=== PATIENT | female | born 1975 | race Caucasian/White ===

== ENCOUNTER 2018-03-06 21:45 | Emergency (ER) | payer OTHER ==
[2018-03-07 00:08] LABS: ABSOLUTE EOSINOPHILS # (AUTO) 0.3 10^3/uL (0.0-0.6); ABSOLUTE LYMPHOCYTES (AUTO) 2.5 10^3/uL (0.5-4.7); ABSOLUTE MONOCYTES (AUTO) 0.9 10^3/uL (0.1-1.4); BASOPHILS % (AUTO) 0.2 % (0-2); EOSINOPHILS % (AUTO) 3.2 % (0-6); HEMOGLOBIN 12.9 g/dL (12.0-15.5); LYMPHOCYTES % (AUTO) 25.7 % (13-45); MEAN CORPUSCULAR HEMOGLOBIN 31.4 pg (27.0-33.4); MEAN CORPUSCULAR VOLUME 92 fl (80-97); MONOCYTES % (AUTO) 9.6 % (3-13); PLATELET COUNT 233 10^3/uL (150-450); RED BLOOD COUNT 4.11 10^6/uL (3.72-5.28); RED CELL DISTRIBUTION WIDTH 13.4 % (11.5-14.0); SEGMENTED NEUTROPHILS % (AUTO) 61.3 % (42-78); TOTAL CELLS COUNTED % (AUTO) 100 %; WHITE BLOOD COUNT 9.7 10^3/uL (4.0-10.5)
[2018-03-07 00:27] LABS: ALANINE AMINOTRANSFERASE 17 U/L (9-52); ALBUMIN 3.5 g/dL (3.5-5.0); ALKALINE PHOSPHATASE 68 U/L (38-126); ANION GAP 9 (5-19); ASPARTATE AMINO TRANSFERASE 12 U/L (14-36); BILIRUBIN,DIRECT 0.2 mg/dL (0.0-0.4); BILIRUBIN,TOTAL 0.5 mg/dL (0.2-1.3); BLOOD UREA NITROGEN 13 mg/dL (7-20); CALCIUM 9.1 mg/dL (8.4-10.2); CARBON DIOXIDE 25 mmol/L (22-30); CHLORIDE 107 mmol/L (98-107); GLUCOSE 89 mg/dL (75-110); POTASSIUM 4.3 mmol/L (3.6-5.0); SODIUM 141.2 mmol/L (137-145); TOTAL PROTEIN 5.9 g/dL (6.3-8.2)
[2018-03-07] MEDS ORDERED: LIDOCAINE 5% (700 MG) TRANSDERMAL ADH..PATCH TP ONE (00:44)
--- NOTE | 2018-03-07 00:49 | ER Document Report ---
ED General - General Chief Complaint: Stiff Neck Stated Complaint: STIFF NECK, FEVER, HEADACHE Time Seen by Provider: 03/06/18 23:44 Notes: Patient is a 43-year-old female without chronic medical problems who presents with 10 days of headache, neck stiffness, fatigue and body pain. The patient reports that the symptoms started approximately 10 days ago have overall been worsening since that time. She has been trying ibuprofen with minimal to no improvement in her pain. Nothing worsens her pain. She was seen in a emergency department yesterday for the same, no labs or imaging were obtained and she was diagnosed with a neck spasm and discharged home on muscle relaxants which she states have not improved her symptoms. She denies a history of similar symptoms in the past. She has not had a recorded fever at home. She is outside regularly. She also does note a small rash on the posterior aspect of her left lower extremity. She denies any confusion, weakness, numbness, but has had vomiting and nausea. She states overall this evening she feels somewhat better than yesterday. TRAVEL OUTSIDE OF THE [place] IN LAST 30 DAYS: No - Related Data Allergies/Adverse Reactions: No Known Allergies Allergy (Verified 01/09/12 23:13) Past Medical History - General Information source: Patient - Social History Smoking Status: Current Some Day Smoker Chew tobacco use (# tins/day): No Frequency of alcohol use: None Drug Abuse: None Lives with: Spouse/Significant other Family History: Reviewed & Not Pertinent Patient has suicidal ideation: No Patient has homicidal ideation: No Renal/ Medical History: Denies: Hx Peritoneal Dialysis Past Surgical History: Reports: Hx Breast Surgery, Hx Hysterectomy, Hx Tonsillectomy - Immunizations Hx Diphtheria, Pertussis, Tetanus Vaccination: Yes Review of Systems - Review of Systems Notes: Constitutional: Negative for fever. HENT: Negative for sore throat. Eyes: Negative for visual changes. Cardiovascular: Negative for chest pain. Respiratory: Negative for shortness of breath. Gastrointestinal: Negative for abdominal pain, positive for nausea and vomiting Genitourinary: Negative for dysuria. Musculoskeletal: Positive for neck pain Skin: Positive for rash. Neurological: Positive for headache 10 point ROS negative except as marked above and in HPI. Physical Exam - Vital signs Vitals: Temp Pulse Resp BP Pulse Ox 98.8 F 94 20 144/113 H 97 03/06/18 21:57 03/06/18 21:57 03/06/18 21:57 03/06/18 21:57 03/06/18 21:57 Interpretation: Hypertensive Notes: PHYSICAL EXAMINATION: GENERAL: Appears moderately uncomfortable but in no acute distress HEAD: Atraumatic, normocephalic. EYES: Pupils equal round and reactive to light, extraocular movements intact, sclera anicteric, conjunctiva are normal. ENT: nares patent, oropharynx clear without exudates. Moderately dry mucous membranes. NECK: Somewhat limited flexion and extension of the neck as well as range of motion although patient is able to complete with encouragement LUNGS: Breath sounds clear to auscultation bilaterally and equal. No wheezes rales or rhonchi. HEART: Regular rate and rhythm without murmurs ABDOMEN: Soft, nontender, normoactive bowel sounds. No guarding, no rebound. No masses appreciated. EXTREMITIES: Normal range of motion, no pitting or edema. No cyanosis. NEUROLOGICAL: Face symmetric. Tongue protrudes midline. Extraocular motions intact. Pupils are 2 mm and equally reactive. Normal speech, normal gait. 5 out of 5 strength in both the distal and proximal upper and lower extremities bilaterally. Sensation is grossly intact throughout. Finger to nose testing normal. Pronator drift normal. PSYCH: Normal mood, normal affect. SKIN: Warm, Dry, normal turgor, no rashes or lesions noted. Course - Re-evaluation Re-evalutation: 03/07/18 00:44 Patient presents with 10 days of headache, neck pain, general fatigue and 2 days of a spotted rash on her left lower extremity. Patient is overall well in appearance, no acute distress, vitals within normal limits. Labs unremarkable without evidence of a lactate elevation or leukocytosis. Patient has some mild neck stiffness but is overall able to complete a full range of motion. The duration of her symptoms excludes an acute bacterial meningitis particularly in the context of normal vitals and labs. A viral meningitis is high on the differential versus possible [place] spotted fever. I discussed at length with the patient and she and her at the bedside have declined a lumbar puncture. I think this is an acceptable decision particular given the low clinical suspicion for bacterial meningitis in a non-treatable nature of viral meningitis. We will however start on a course of doxycycline to cover for the possibility [place] spotted fever. At this time will discharge with return precautions and follow-up recommendations. Verbal discharge instructions given a the bedside and opportunity for questions given. Medication warnings reviewed. Patient is in agreement with this plan and has verbalized understanding of return precautions and the need for primary care follow-up in the next 24-72 hours. - Vital Signs Vital signs: Temp Pulse Resp BP Pulse Ox 98 F 87 18 118/76 100 03/07/18 01:10 03/07/18 01:10 03/07/18 01:10 03/07/18 01:10 03/07/18 01:10 - Laboratory Result Diagrams: 03/06/18 23:57 03/06/18 23:57 Laboratory results interpreted by me: 03/06/18 03/07/18 23:57 00:22 Lactic Acid 0.6 L AST 12 L Total Protein 5.9 L Discharge - Discharge Clinical Impression: Viral meningitis Headache Qualifiers: Headache type: unspecified Headache chronicity pattern: acute headache Intractability: not intractable Qualified Code(s): R51 - Headache Condition: Good Disposition: HOME, SELF-CARE Additional Instructions: The exact cause of your symptoms today is uncertain, but given what we have discussed today your being empirically treated with doxycycline for [place] Spotted fever. Alternative consideration is a viral meningitis for which there is no specific treatment. This is a tickborne illness that is very common in [place]. Please take all the antibiotics even if you are feeling better. Please return to the emergency department immediately if you develop worsening of your headache, confusion, persistent vomiting, or have any other symptoms that are worrisome to you. Please follow-up with your primary care doctor in the next 24-48 hours. For your pain: Take ibuprofen 600 mg and acetaminophen 1000 mg every 6 hours together as needed for pain. Prescriptions: Doxycycline Hyclate 100 mg PO BID #28 capsule Referrals: MARIO BOSWELL MD [Primary Care Provider] - Follow up as needed
[2018-03-07] MEDS ORDERED: DOXYCYCLINE HYCLATE 100 MG TABLET PO ONE (00:51)
[2018-03-07] MEDS ORDERED: IBUPROFEN 600 MG TABLET PO ONE (00:51)
[2018-03-07] MEDS ORDERED: ACETAMINOPHEN 325 MG TABLET PO ONE (00:51)
[2018-03-07 01:10] VITALS: BP 118/76
== END 2018-03-07 01:26 | disposition home or self-care (01) ==
LOC: ER 21:45
DX: A87.9 Viral meningitis, unspecified (principal); R51 Headache; M43.6 Torticollis; M54.2 Cervicalgia; R53.83 Other fatigue; R21 Rash and other nonspecific skin eruption; F17.200 Nicotine dependence, unspecified, uncomplicated
CPT/HCPCS: 36415; 80053; 83605; 85025; 99284

== ENCOUNTER → 2019-04-05 | Outpatient (CLI) | payer OTHER ==
[2019-04-05 13:58] LABS: ABSOLUTE BASOPHILS # (AUTO) 0.1 10^3/uL (0.0-0.2); ABSOLUTE EOSINOPHILS # (AUTO) 0.2 10^3/uL (0.0-0.6); ABSOLUTE LYMPHOCYTES (AUTO) 2.2 10^3/uL (0.5-4.7); ABSOLUTE NEUT (AUTO) 6.7 10^3/uL (1.7-8.2); BASOPHILS % (AUTO) 1.3 % (0-2); EOSINOPHILS % (AUTO) 2.1 % (0-6); HEMATOCRIT 39.7 % (36.0-47.0); HEMOGLOBIN 13.7 g/dL (12.0-15.5); LYMPHOCYTES % (AUTO) 21.6 % (13-45); MEAN CORPUSCULAR HEMOGLOBIN 31.5 pg (27.0-33.4); MEAN CORPUSCULAR HGB CONC 34.4 g/dL (32.0-36.0); MEAN CORPUSCULAR VOLUME 92 fl (80-97); MONOCYTES % (AUTO) 9.8 % (3-13); PLATELET COUNT 244 10^3/uL (150-450); RED BLOOD COUNT 4.34 10^6/uL (3.72-5.28); RED CELL DISTRIBUTION WIDTH 13.7 % (11.5-14.0); SEGMENTED NEUTROPHILS % (AUTO) 65.2 % (42-78); TOTAL CELLS COUNTED % (AUTO) 100 %; WHITE BLOOD COUNT 10.3 10^3/uL (4.0-10.5)
== END ==
LOC: OD 13:23
PROVIDERS: ATTEND Nurse Practitioner Primary Care
DX: M79.662 Pain in left lower leg (principal); Z71.6 Tobacco abuse counseling
CPT/HCPCS: 36415; 85025; 85379